=== PATIENT | male | born 1990 | race Two or more races ===

== ENCOUNTER 2025-02-16 10:43 | Inpatient (IN) | payer MEDICAID, OTHER ==
[~2025-02-16] VITALS: Ht 188 cm; Wt 131.5 kg
--- NOTE | 2025-02-16 11:18 | ED.PDOC ---
GI ASSESSMENT HPI Comments HPI: Poor Historian. Wound day history of epigastric pain with nausea and vomiting and black vomit that started this morning. Patient has history of stomach ulcer 34y M who presents to the ED for chief complaint of nausea and vomiting.Pt has the following ED course: -pt states earlier this AM, he had nausea and the vomiting episodes and states he had 4 vomiting episodes and states last vomiting episode, he states vomit was black - pt states he went to lay down on cough and states while laying down, he started to feel body aches and chills and came to the ED for further evaluation -pt in the ED, states he is also having epigastric abdominal pain, non- radiating, burning in nature, rating the pain 6/10, with no noted exacerbating or relieving factors -pt states he does have history of stomach ulcer and had endoscopy in 2013 - pt otherwise in the ED, states he also had diarrhea episode but denies any other symptoms past medical history: seizures, bipolar depression past surgical history: surgery for undescended testicles medications: unknown allergies: nkda social history: denies tobacco use, denies Etoh use, denies drug use REVIEW OF SYSTEMS: CONSTITUTIONAL: Denies acute: fever, diaphoresis, chills, HEAD: Denies acute: headache, photophobia Eyes: Denies acute: Double vision, vision loss, eye pain, eye discharge. EARS: Denies acute: tinnitus, hearing loss, ear discharge, ear pain, THROAT: Denies acute: sore throat, swelling, difficulty swallowing , pain with swallowing, change in voice. NECK: Denies acute: neck pain, neck swelling, stiff neck. HEART: Denies acute : chest pain, palpitations, LUNGS: Denies acute: SOB, wheezing, cough, hemoptysis ABDOMEN: Denies acute: diarrhea, melena , hematochezia SKIN: Denies acute: rash, redness, lesions, itchiness. EXTREMITIES: Denies acute: calf pain, numbness, tingling, weakness, denies pain in extremity. Denies acute: Low back pain. Neuro: Denies acute: focal neurological deficit, motor or sensory focal neurological deficit, tremors, seizure like activity, confusion, dizziness, change in mental status, loss of bowel or bladder function, cauda equina like symptoms. : Denies acute: dysuria, hematuria, flank pain, increase in urinary frequency. PSYCH: Denies acute: hallucination, suicidal ideation, homicidal ideation. PHYSICAL EXAM: General: [id number] acute distress, awake and alert. Head: normocephalic, atraumatic. Neck: supple, trachea is midline, no swelling. Throat: Normal phonation. Eyes:, no erythema, no purulent discharge, no proptosis, no icterus. Heart: regular rate, regular rhythm, no significant murmur appreciated. Lungs: no apparent respiratory distress, Able to speak in full sentences. No wheezing, no rhonchi, no crackles. No stridors Clear to auscultation bilaterally. Abdomen: Epigastric tender to palpation, non distended, soft, no guarding, no rebound, + bowel sounds. Neuro: Awake, Alert, oriented to name, self, situation, follows commands GCS=15. Speech is normal. Skin: no petechia, no purpura, no cyanosis, non-pale, not jaundice. Lower extremities: --no - Pitting edema no deformity, no focal swelling, no calf TTP. Makes eye contact. moves all four extremities. Face: no apparent facial droop. Ambulating in the ED independently. ED COURSE: Chief Complaint: Nausea/Vomiting Time Seen by MD: 10:50 Reviewed Notes: Nurses Notes, Allergies Allergies: Coded Allergies: NO KNOWN ALLERGIES (Unverified , 02/16/25) Information Source: Patient Mode of Arrival: Ambulatory Was a procedure done? Was a procedure done?: No GI differential Dx Differential Diagnosis: Other (DDX include but not limited to diverticulitis, colitis, gastroenteritis, acute abdomen, SBO, enteritis, constipation, volvulus, appendicitis, Gallbladder disease, choledocolithiasis, ascending cholangitis, pancreatitis, intraAbdominal mass/neoplasm, hepatitis, UTI, pylonephritis, kidney stone, aneurysm, dissection, Inflammatory bowel disease, gastroparesis, ischemic bowel.) X-Ray, Labs, Meds, VS Vital Signs Date Time Temp Pulse Resp B/P (MAP) Pulse Ox O2 Delivery O2 Flow Rate FiO2 02/16/25 13:04 97.4 71 18 144/72 (96) 98 97.4 02/16/25 12:08 84 17 95 Room Air* 0 21 02/16/25 12:00 98.2 67 16 120/75 (90) 95 98.2 02/16/25 10:52 98.0 68 18 123/69 (87) 97 98.0 Lab Test 02/16/25 14:00 02/16/25 11:10 Range/Units Urine Color Yellow Yellow Urine Clarity Clear Clear Urine pH 7.5 5.0-9.0 Urine Specific [place] 1.024 1.001-1.035 Urine Protein Negative Negative Urine Ketones Trace Negative Urine Blood Negative Negative /uL Urine Nitrite Negative Negative Urine Bilirubin Negative Negative Urine Urobilinogen Normal Negative mg/dL Urine Leukocyte Esterase Negative Negative /uL Urine RBC 1 0 - 3 /hpf Urine Microscopic WBC 8 H 0-3 /HPF Urine Squamous Epithelial Cells Few <5 /hpf Urine Bacteria None seen None Seen /hpf Urine Mucus Few None Seen Urine Glucose Normal Normal mg/dL White Blood Count 9.0 4.4-10.8 10^3/uL Red Blood Count 5.30 4.5-5.90 10^6/uL Hemoglobin 16.2 13.5-17.5 g/dL Hematocrit 46.5 41.0-53.0 % Mean Corpuscular Volume 87.8 80.0-100.0 fL Mean Corpuscular Hemoglobin 30.6 28.0-32.0 pg Mean Corpuscular Hemoglobin Concent 34.8 32.0-36.0 g/dL Red Cell Distribution Width 13.8 11.8-14.3 % Platelet Count 251 140-450 10^3/uL Mean Platelet Volume 8.4 6.9-10.8 fL Neutrophils (%) (Auto) 62.1 37.0-80.0 % Lymphocytes (%) (Auto) 29.5 10.0-50.0 % Monocytes (%) (Auto) 7.6 0.0-12.0 % Eosinophils (%) (Auto) 0.4 0.0-7.0 % Basophils (%) (Auto) 0.4 0.0-2.0 % Neutrophils # (Auto) 5.6 1.6-8.6 10 ^3/uL Lymphocytes # (Auto) 2.7 0.4-5.4 10 ^3/uL Monocytes # (Auto) 0.7 0-1.3 10 ^3/uL Eosinophils # (Auto) 0 0-0.8 10 ^3/uL Basophils # (Auto) 0 0-0.2 10 ^3/uL Nucleated Red Blood Cells 0.2 % Sodium Level 139 136-145 mmol/L Potassium Level 4.3 3.5-5.1 mmol/L Chloride Level 105 98-107 mmol/L Carbon Dioxide Level 26 20-31 mmol/L Anion Gap 8 5-15 Blood Urea Nitrogen 11 9-23 mg/dL Creatinine 0.83 0.700-1.30 mg/dL Glomerular Filtration Rate Calc 116 >90 mL/min BUN/Creatinine Ratio 13.3 10.0-20.0 Serum Glucose 97 74-106 mg/dL Lactic Acid Level 1.0 0.4-2.0 mmol/L Calcium Level 9.7 8.7-10.4 mg/dL Total Bilirubin 0.9 0.2-1.0 mg/dL Aspartate Amino Transferase (AST) 29 13-40 U/L Alanine Aminotransferase (ALT) 40 7-40 U/L Alkaline Phosphatase 110 46-116 U/L Total Protein 7.9 5.7-8.2 g/dL Albumin 4.7 3.2-4.8 g/dL Lipase 76 H 12-53 U/L Current Medications Medications (Trade) Dose Ordered Sig/Mikel Route Start Time Stop Time Status Last Admin Sodium Chloride 1,000 ml @ 1,000 mls/hr Q1H ONCE IV 02/16/25 11:00 02/16/25 11:59 DC 02/16/25 12:01 Pantoprazole Sodium (Protonix) 40 mg ONCE ONCE IV 02/16/25 11:00 02/16/25 11:01 DC 02/16/25 12:07 Ondansetron HCl (Zofran) 8 mg ONCE ONCE IV 02/16/25 11:00 02/16/25 11:01 DC 02/16/25 12:07 [place] [address] Ph: [phone] DIAGNOSTIC IMAGING Diagnostic Imaging Report : [id number] Signed PATIENT: LARS ARAIZA ACCT: [id number] UNIT: [id number] : 1990 LOC: ER ROOM / BED: / AGE / SEX: 34 / M ADM STATUS: REG ER SERVICE 1052 ORDERING PHYSICIAN: RANGEL MARCELINO DO PROCEDURE(s): ABPL - CT AB PEL WO CON-NO ORAL OR IV REASON: n/v hematemesis abd pain ORDER NUMBER(s): [id number], ACCESSION NUMBER(s): [id number] Exam: AB PEL W/O History: Nausea / vomiting, hematemesis, abdominal pain Comparison Study: None Technique: Multidetector spiral CT of the abdomen and pelvis was performed from lung bases to pubic symphysis. Imaging was performed without IV contrast. Axial, coronal and sagittal multiplanar reformats were obtained from the axial data set by the technologist. Radiation dose : Abdomen/Pelvis: CTDIvol 25.98 mGy, DLP 1351.17 mGy*cm. Findings: Evaluation of solid organs is limited due to lack of intravenous contrast use. Lung Bases: No acute or significant lung base finding. Normal heart size. No pleural or pericardial effusion. Liver: The liver is normal in size. No focal lesions. Gallbladder and biliary Tree: Unremarkable Spleen: Unremarkable Pancreas: The pancreas is grossly normal in appearance. Adrenal Glands: Unremarkable Kidneys: Left renal cyst. No hydronephrosis or nephrolithiasis. Bladder: Grossly unremarkable for degree of distention. Bowel: The stomach is grossly normal in appearance. Small bowel and colon are normal in caliber and distribution. Normal appendix is visualized in the right lower quadrant without findings of appendicitis. Ascites: Absent Lymphadenopathy: No mesenteric, retroperitoneal or periportal lymphadenopathy. Abdominal wall and Mesentery: Unremarkable. Vasculature: The visualized abdominal aorta is normal in size and caliber. Evaluation of abdominal and pelvic vessels is limited due to lack of intravenous contrast. Pelvic Organs: Unremarkable Musculoskeletal: No aggressive focal bony lesions, acute fractures or dislocation. IMPRESSION: 1. No acute abdominal or pelvic findings. No hydronephrosis or nephrolithiasis. Radiation optimization: All CT scans at this facility use at least one of these dose optimization techniques: Automated exposure control mA and/or kV adjustment per patient size (includes targeted exams where dose is matched to clinical indication) or iterative reconstruction. HS:Y ATED BY: LONNIE HERNÁNDEZ MD DICTATED DATE/TIME: 02/16/25 1150 SIGNED BY: LONNIE HERNÁNDEZ MD SIGNED DATE/TIME: 02/16/25 1150 CC: Time of 1ST Reevaluation: 21:41 Reevaluation 1ST: Improved Patient Education/Counseling: Diagnosis, Treatment Family Education/Counseling: No Family Present Comments Patient presented with the above HPI.---abdominal pain/hematemesis--workup was initiated. patient was found with the above mentioned diagnosis. the following medications were ordered: please refer to order lists of meds and tests obtained by myself Dr. Marcelino. Patient ED course and VS have been stabilized. Patient has been reassessed in the ED and remained in a stable condition. Pertinent incidental findings were discussed with the patient and/or family. Patient/family voices understanding and is agreeable with plan. Patient has been observed in the ED adequate length of time to insure improvement/stability. Escalation of care considered: Consideration of escalation to observation or admission Patient was ADMITTED to the medicine team for further evaluation and treatment of their presentation. All the reports of any imaging studies that were ordered by myself were reviewed by myself. Departure 1 Departure Time of Disposition: 12:00 Impression: Primary Impression: Hematemesis Additional Impression: Epigastric pain Disposition: ADMITTED INPATIENT Admit to: Tele Condition: Guarded Discharged With: Self Critical Care Note Critical Care Time?: No I personally scribed for RANGEL MARCELINO DO ([email or web address]) on 02/16/25 at 11:18. Electronically submitted by Georgia Winters ([email or web address]). I personally scribed for RANGEL MARCELINO DO ([email or web address]) on 02/16/25 at 11:34. Electronically submitted by Georgia Winters ([email or web address]). I personally scribed for RANGEL MARCELINO DO ([email or web address]) on 02/16/25 at 12:45. Electronically submitted by Georgia Winters ([employer]). RANGEL MARCELINO DO Feb 16, 2025 11:18
[2025-02-16 11:30] LABS: Basophils # (auto) 0 10 ^3/uL (0-0.2); Basophils % (auto) 0.4 % (0.0-2.0); Eosinophils # (auto) 0 10 ^3/uL (0-0.8); Eosinophils % (auto) 0.4 % (0.0-7.0); Hematocrit 46.5 % (41.0-53.0); Hemoglobin 16.2 g/dL (13.5-17.5); Lymphocytes # (auto) 2.7 10 ^3/uL (0.4-5.4); Lymphocytes % (auto) 29.5 % (10.0-50.0); Mean Corpuscular Hemoglobin 30.6 pg (28.0-32.0); Mean Corpuscular Hgb Conc. 34.8 g/dL (32.0-36.0); Mean Corpuscular Volume 87.8 fL (80.0-100.0); Monocytes # (auto) 0.7 10 ^3/uL (0-1.3); Monocytes % (auto) 7.6 % (0.0-12.0); Neutrophils # (auto) 5.6 10 ^3/uL (1.6-8.6); Neutrophils % (auto) 62.1 % (37.0-80.0); Nucleated Red Blood Cells % 0.2 %; Platelet Count (auto) 251 10^3/uL (140-450); Red Cell Distribution Width 13.8 % (11.8-14.3)
[2025-02-16] MEDS: SODIUM CHLORIDE 0.9% 1,000 ML IV ONE (12:01)
[2025-02-16 12:07] LABS: Alanine Aminotransferase 40 U/L (7-40); Albumin 4.7 g/dL (3.2-4.8); Alkaline Phosphatase 110 U/L (46-116); Anion Gap 8 (5-15); Aspartate Aminotransferase 29 U/L (13-40); BUN/Creatinine Ratio 13.3 (10.0-20.0); Bilirubin, Total 0.9 mg/dL (0.2-1.0); Blood Urea Nitrogen 11 mg/dL (9-23); Calcium 9.7 mg/dL (8.7-10.4); Carbon Dioxide 26 mmol/L (20-31); Chloride 105 mmol/L (98-107); Glucose 97 mg/dL (74-106); Potassium 4.3 mmol/L (3.5-5.1); Sodium 139 mmol/L (136-145); Total Protein 7.9 g/dL (5.7-8.2)
[2025-02-16] MEDS: PANTOPRAZOLE 40 MG/10 ML VIAL INJ IV ONE (12:07)
[2025-02-16] MEDS: ONDANSETRON HCL 4 MG/2 ML VIAL IV ONE (12:07)
[2025-02-16 12:08] VITALS: PULSE 84; RESP 17; O2SAT 95
--- NOTE | 2025-02-16 12:15 | DVH ---
Exam: AB PEL W/O History: Nausea / vomiting, hematemesis, abdominal pain Comparison Study: None Technique: Multidetector spiral CT of the abdomen and pelvis was performed from lung bases to pubic symphysis. Imaging was performed without IV contrast. Axial, coronal and sagittal multiplanar reform ats were obtained from the axial data set by the technologist. Radiation dose : Abdomen/Pelvis: CTDIvol 25.98 mGy, DLP 1351.17 mGy*cm. Findings: Evaluation of solid organs is limited due to lack of intravenous contrast use. Lung Bases: No acute or significant lung base finding. Normal heart size. No pleural or pericardial effusion. Liver: The liver is normal in size. No focal lesions. Gallbladder and biliary Tree: Unremarkable Spleen: Unremarkable Pancreas: The pancreas is grossly normal in appearance. Adrenal Glands: Unremarkable Kidneys: Left renal cyst. No hydronephrosis or nephrolithiasis. Bladder: Grossly unremarkable for degree of distention. Bowel: The stomach is grossly normal in appearance. Small bowel and colon are normal in caliber and d istribution. Normal appendix is visualized in the right lower quadrant without findings of appendicit is. Ascites: Absent Lymphadenopathy: No mesenteric, retroperitoneal or periportal lymphadenopathy. Abdominal wall and Mesentery: Unremarkable. Vasculature: The visualized abdominal aorta is normal in size and caliber. Evaluation of abdominal a nd pelvic vessels is limited due to lack of intravenous contrast. Pelvic Organs: Unremarkable Musculoskeletal: No aggressive focal bony lesions, acute fractures or dislocation. IMPRESSION: 1.No acute abdominal or pelvic findings. No hydronephrosis or nephrolithiasis. Radiation optimization: All CT scans at this facility use at least one of these dose optimization te chniques: Automated exposure control mA and/or kV adjustment per patient size (includes targeted exam s where dose is matched to clinical indication) or iterative reconstruction. HS:Y
[2025-02-16 12:22] LABS: Lipase 76 U/L (12-53)
[2025-02-16 14:22] LABS: Urine Bacteria None Seen /hpf (None Seen)
[2025-02-16 14:31] LABS: Urine Blood Negative /uL (Negative); Urine Clarity Clear (Clear); Urine Color Yellow (Yellow); Urine Mucus FEW (None Seen); Urine Protein, UAD Negative (Negative); Urine Specific Gravity 1.024 (1.001-1.035); Urine Squamous Epithelial Cell FEW /hpf (<5); Urine Urobilinogen Normal (Negative); Urine WBC 8 /HPF (0-3); Urine pH 7.5 (5.0-9.0)
[2025-02-16] MEDS ORDERED: ONDANSETRON HCL 4 MG/2 ML VIAL IV PRN (15:15)
[2025-02-16] MEDS ORDERED: ACETAMINOPHEN 325 MG TAB PO PRN (15:15)
[2025-02-16] MEDS ORDERED: MORPHINE SULFATE INJ 2 MG/ml SYRG IV PRN (15:15)
--- NOTE | 2025-02-16 15:43 | DVHHP2 ---
History of Present Illness Reason for Visit: Abdominal pain History of Present Illness Henrry Esteban is a 34-year-old male with past medical history of stomach ulcer, seizures, bipolar disorder, and testicular surgery who presents to the ED with abdominal pain, nausea, vomiting, and diarrhea x1 day. Patient reports that the abdominal pain is 5/10 burning and intermittent nature. He also reports body aches and chills. Patient reports that he was throwing up clear liquids then small clots black in color. Patient denies chest pain, lightheadedness, weakness, dizziness, fever, recent trauma or injury, recent ingestion of spoiled food, recent sick contacts, and shortness of breath. Patient also denies melena. 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 Psych: Bipolar Past Medical History Stomach ulcer Past Surgical History: Other (Testicular surgery) Family History: DM, Other (Both parents with diabetes) Smoke: No ALCOHOL: none Drugs: Marijuana Lives: with Family Domestic Violence: Neg Review of Systems Constitutional: Yes: Chills, Other (Body aches) Gastrointestinal: Nausea, Vomiting, Abdominal Pain, Diarrhea Allergies: Coded Allergies: NO KNOWN ALLERGIES (Unverified , 02/16/25) Medications Current Medications Medications Dose Ordered Sig/Mikel Route Start Time Stop Time Status Last Admin Dose Admin Pantoprazole Sodium 40 mg DAILY IV 02/17/25 10:00 UNV Acetaminophen/ Hydrocodone Bitart 1 tab Q4HP PRN PO 02/16/25 15:15 UNV Ondansetron HCl 4 mg Q4HP PRN IV 02/16/25 15:15 UNV Acetaminophen 650 mg Q6HP PRN PO 02/16/25 15:15 UNV Morphine Sulfate 2 mg Q4HPRN PRN IV 02/16/25 15:15 UNV Exam Vital Signs Vital Signs Date Time Temp Pulse Resp B/P (MAP) Pulse Ox O2 Delivery O2 Flow Rate FiO2 02/16/25 13:04 97.4 71 18 144/72 (96) 98 97.4 02/16/25 12:08 Room Air* 0 21 General Appearance: Alert, Oriented X3, Cooperative, No acute distress HEENT: Atraumatic, PERRLA, EOMI, Mucous membr. moist/pink Respiratory: Clear to auscultation, Normal air movement Cardiovascular: Regular rate, Normal S1, Normal S2, No murmurs Abdominal: Soft Extremities: No cyanosis, Normal pulses Skin: No significant lesion Neuro: Normal gait, Normal speech, Strength at 5/5 X4 ext, Normal tone, Sensation intact Psych/Mental Status: Mental status NL, Mood NL Labs/Xrays Labs Test 02/16/25 14:00 02/16/25 11:10 Range/Units Urine Color Yellow Yellow Urine Clarity Clear Clear Urine pH 7.5 5.0-9.0 Urine Specific [place] 1.024 1.001-1.035 Urine Protein Negative Negative Urine Ketones Trace Negative Urine Blood Negative Negative /uL Urine Nitrite Negative Negative Urine Bilirubin Negative Negative Urine Urobilinogen Normal Negative mg/dL Urine Leukocyte Esterase Negative Negative /uL Urine RBC 1 0 - 3 /hpf Urine Microscopic WBC 8 H 0-3 /HPF Urine Squamous Epithelial Cells Few <5 /hpf Urine Bacteria None seen None Seen /hpf Urine Mucus Few None Seen Urine Glucose Normal Normal mg/dL White Blood Count 9.0 4.4-10.8 10^3/uL Red Blood Count 5.30 4.5-5.90 10^6/uL Hemoglobin 16.2 13.5-17.5 g/dL Hematocrit 46.5 41.0-53.0 % Mean Corpuscular Volume 87.8 80.0-100.0 fL Mean Corpuscular Hemoglobin 30.6 28.0-32.0 pg Mean Corpuscular Hemoglobin Concent 34.8 32.0-36.0 g/dL Red Cell Distribution Width 13.8 11.8-14.3 % Platelet Count 251 140-450 10^3/uL Mean Platelet Volume 8.4 6.9-10.8 fL Neutrophils (%) (Auto) 62.1 37.0-80.0 % Lymphocytes (%) (Auto) 29.5 10.0-50.0 % Monocytes (%) (Auto) 7.6 0.0-12.0 % Eosinophils (%) (Auto) 0.4 0.0-7.0 % Basophils (%) (Auto) 0.4 0.0-2.0 % Neutrophils # (Auto) 5.6 1.6-8.6 10 ^3/uL Lymphocytes # (Auto) 2.7 0.4-5.4 10 ^3/uL Monocytes # (Auto) 0.7 0-1.3 10 ^3/uL Eosinophils # (Auto) 0 0-0.8 10 ^3/uL Basophils # (Auto) 0 0-0.2 10 ^3/uL Nucleated Red Blood Cells 0.2 % Sodium Level 139 136-145 mmol/L Potassium Level 4.3 3.5-5.1 mmol/L Chloride Level 105 98-107 mmol/L Carbon Dioxide Level 26 20-31 mmol/L Anion Gap 8 5-15 Blood Urea Nitrogen 11 9-23 mg/dL Creatinine 0.83 0.700-1.30 mg/dL Glomerular Filtration Rate Calc 116 >90 mL/min BUN/Creatinine Ratio 13.3 10.0-20.0 Serum Glucose 97 74-106 mg/dL Lactic Acid Level 1.0 0.4-2.0 mmol/L Calcium Level 9.7 8.7-10.4 mg/dL Total Bilirubin 0.9 0.2-1.0 mg/dL Aspartate Amino Transferase (AST) 29 13-40 U/L Alanine Aminotransferase (ALT) 40 7-40 U/L Alkaline Phosphatase 110 46-116 U/L Total Protein 7.9 5.7-8.2 g/dL Albumin 4.7 3.2-4.8 g/dL Lipase 76 H 12-53 U/L Exam: AB PEL W/O History: Nausea / vomiting, hematemesis, abdominal pain Comparison Study: None Technique: Multidetector spiral CT of the abdomen and pelvis was performed from lung bases to pubic symphysis. Imaging was performed without IV contrast. Axial, coronal and sagittal multiplanar reformats were obtained from the axial data set by the technologist. Radiation dose : Abdomen/Pelvis: CTDIvol 25.98 mGy, DLP 1351.17 mGy*cm. Findings: Evaluation of solid organs is limited due to lack of intravenous contrast use. Lung Bases: No acute or significant lung base finding. Normal heart size. No pleural or pericardial effusion. Liver: The liver is normal in size. No focal lesions. Gallbladder and biliary Tree: Unremarkable Spleen: Unremarkable Pancreas: The pancreas is grossly normal in appearance. Adrenal Glands: Unremarkable Kidneys: Left renal cyst. No hydronephrosis or nephrolithiasis. Bladder: Grossly unremarkable for degree of distention. Bowel: The stomach is grossly normal in appearance. Small bowel and colon are normal in caliber and distribution. Normal appendix is visualized in the right lower quadrant without findings of appendicitis. Ascites: Absent Lymphadenopathy: No mesenteric, retroperitoneal or periportal lymphadenopathy. Abdominal wall and Mesentery: Unremarkable. Vasculature: The visualized abdominal aorta is normal in size and caliber. Evaluation of abdominal and pelvic vessels is limited due to lack of intravenous contrast. Pelvic Organs: Unremarkable Musculoskeletal: No aggressive focal bony lesions, acute fractures or dislocation. IMPRESSION: 1. No acute abdominal or pelvic findings. No hydronephrosis or nephrolithiasis. Assessment/Plan Assessment/Plan Assessment Intractable abdominal pain with nausea vomiting and diarrhea Hyperlipasemia Marijuana use Obesity History of stomach ulcer History of seizures History of bipolar disorder History of testicular surgery Plan Admit to med surge Antiemetics PPIs NS [address] abdomen and pelvis EKG UA Lipase Lactic Flu COVID Counseled patient on lifestyle modifications, diet, and exercise Discussed plan of care with patient and nurse Counseled patient on cessation of marijuana use No home meds to reconcile patient states that he does not take many medications DVT prophylaxis not indicated patient ambulating PUD prophylaxis-Protonix Plan discussed with: Patient My Orders Orders - JACQUELINE FRY Procedure Category Date Status Time Pantoprazole PHA 02/17/25 Transmitted (Protonix) 10:00 Admit ADMIT 02/16/25 Transmitted 15:07 Allergies CHRISTIANO 02/16/25 Transmitted 15:07 Code Status CODE 02/16/25 Transmitted 15:07 Hydrocodone-Acet PHA 02/16/25 Transmitted 5/325mg Tab ([place] 15:15 Ondansetron Hcl PHA 02/16/25 Transmitted (Zofran) 15:15 Complete Blood Count LAB 02/17/25 Verified 04:00 Comprehensive LAB 02/17/25 Verified Metabolic Panel 04:00 Acetaminophen Tablet PHA 02/16/25 Transmitted (Tylenol Tablet) 15:15 Morphine Sulfate PHA 02/16/25 Transmitted Injection 15:15 Regular Diet DIET 02/16/25 Transmitted Dinner Date of Service: Feb 16, 2025 Billing Provider: JACQUELINE FRY Common Visit Codes: [id number] INP/OBS CARE (HIGH) JACQUELINE FRY Feb 16, 2025 15:43
[2025-02-16 16:43] VITALS: BP 108/68; PULSE 61; RESP 16; TEMP 98.5; O2SAT 98
[2025-02-16 20:32] VITALS: BP 113/52; PULSE 67; RESP 18; TEMP 98; O2SAT 96
[2025-02-16 20:41] LABS: COVID19 ANTIGEN SOFIA FIA NEGATIVE (NEGATIVE); Rapid Influenza A Negative (Negative); Rapid Influenza B Negative (Negative)
[2025-02-16] MEDS: CALCIUM CARB 500 MG CHEW TAB PO SCH (21:42)
[2025-02-16] MEDS: HYDROcodone-ACET 5/325MG TAB PO PRN (22:19)
[2025-02-16 22:20] VITALS: BP 106/46; PULSE 60; RESP 18; TEMP 98.2; O2SAT 97
[2025-02-17] VITALS (7 sets, daily range): BP systolic 105–135; BP diastolic 51–71; PULSE 57–74; RESP 16–20; TEMP 97.4–98.7; O2SAT 95–100
[2025-02-17 06:29] LABS: Basophils # (auto) 0 10 ^3/uL (0-0.2); Basophils % (auto) 0.3 % (0.0-2.0); Eosinophils # (auto) 0.1 10 ^3/uL (0-0.8); Hematocrit 44.5 % (41.0-53.0); Hemoglobin 14.9 g/dL (13.5-17.5); Lymphocytes # (auto) 3.1 10 ^3/uL (0.4-5.4); Mean Corpuscular Hemoglobin 29.7 pg (28.0-32.0); Mean Corpuscular Hgb Conc. 33.6 g/dL (32.0-36.0); Mean Corpuscular Volume 88.3 fL (80.0-100.0); Monocytes # (auto) 0.8 10 ^3/uL (0-1.3); Monocytes % (auto) 9.4 % (0.0-12.0); Neutrophils # (auto) 4.6 10 ^3/uL (1.6-8.6); Neutrophils % (auto) 53.3 % (37.0-80.0); Platelet Count (auto) 215 10^3/uL (140-450); Red Blood Cells 5.04 10^6/uL (4.5-5.90); Red Cell Distribution Width 14.2 % (11.8-14.3); White Blood Cell 8.6 10^3/uL (4.4-10.8)
[2025-02-17 06:49] LABS: Alanine Aminotransferase 35 U/L (7-40); Albumin 3.9 g/dL (3.2-4.8); Alkaline Phosphatase 91 U/L (46-116); Anion Gap 8 (5-15); Aspartate Aminotransferase 25 U/L (13-40); BUN/Creatinine Ratio 12.8 (10.0-20.0); Bilirubin, Total 0.9 mg/dL (0.2-1.0); Blood Urea Nitrogen 11 mg/dL (9-23); Calcium 9.1 mg/dL (8.7-10.4); Carbon Dioxide 26 mmol/L (20-31); Chloride 106 mmol/L (98-107); Glucose 92 mg/dL (74-106); Potassium 4.3 mmol/L (3.5-5.1); Sodium 140 mmol/L (136-145); Total Protein 6.8 g/dL (5.7-8.2)
[2025-02-17] MEDS ORDERED: CALCIUM CARB 500 MG CHEW TAB PO SCH (08:00)
[2025-02-17] MEDS: PANTOPRAZOLE 40 MG/10 ML VIAL INJ IV SCH (08:53)
[2025-02-17] MEDS: SUCRALFATE 1 GM/10 ML ORAL SUSP PO SCH (12:54)
[2025-02-17] MEDS: SODIUM CHLORIDE 0.9% 1,000 ML IV ONE (17:37)
--- NOTE | 2025-02-17 21:05 | DVHPNRES ---
Progress Note Date Seen: Feb 17, 2025 Resident Creating Document: ANSLEY LEOSKISHAN RESIDENT Medical Necessity Reason Pt with a Central, PICC or Fol: No Subjective Review of Systems Patient 34-year-old male with a past medical history of gastric ulcer presented to the ED with a chief complaint of multiple episodes of vomiting and abdominal pain. Patient reported that 2 days ago in the evening he started to have diarrhea with 2-3 episodes of watery stools and the following day early in the morning he had multiple episodes of vomiting in 1 hour and noticed small dark black specks during one of the episodes. Patient also reported associated abdominal pain in the epigastrium in the left upper quadrant, nonradiating, got worse with the food. Patient reports that in 2014 he had hematemesis following which he underwent upper endoscopy and reportedly showed lower esophageal/gastric ulcers following which she was started on antiacid medication which he took for a while but has not taken it in the last 2-3 years. Patient denies the use of NSAIDs, heavy alcohol, spicy foods or caffeine. He does report smoking 3 joints of marijuana every day. Patient denied any similar episode of vomiting in the last year. Patient does report having black stools in the last year. 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 Social history: Patient was with family and smokes 2-3 joints of marijuana every day but denies alcohol or other drug use Home medications: None Review of systems Patient reported epigastric, right and left upper quadrant abdominal pain and tenderness which got worse with the food Denies nausea or vomiting No episode of watery stools for 2 days Objective vital signs Vital Sign Date Time Temp Pulse Resp B/P (MAP) Pulse Ox O2 Delivery O2 Flow Rate FiO2 02/17/25 20:00 Room Air* 0 21 02/17/25 16:40 98.0 62 18 125/71 (89) 97 98.0 Total Intake and Output 02/16/25 02/16/25 02/17/25 15:00 23:00 07:00 Intake Total 1000 ml 300 ml 100 ml Balance 1000 ml 300 ml 100 ml medications Current Medications Medications Dose Ordered Sig/Mikel Route Start Time Stop Time Status Last Admin Dose Admin Pantoprazole Sodium 40 mg DAILY IV 02/17/25 10:00 02/17/25 08:53 40 MG Acetaminophen/ Hydrocodone Bitart 1 tab Q4HP PRN PO 02/16/25 15:15 02/17/25 16:16 1 TAB Ondansetron HCl 4 mg Q4HP PRN IV 02/16/25 15:15 Acetaminophen 650 mg Q6HP PRN PO 02/16/25 15:15 Calcium Carbonate 500 mg BIDWM PO 02/16/25 22:00 02/17/25 17:35 500 MG Sucralfate 1 gm QID@0600,1130,1700,2200 PO 02/17/25 11:30 02/17/25 17:35 1 GM Examination Constitution patient was alert and oriented to time, place and person and does not appear to be in any acute distress Gen - no pallor, no icterus, no cyanosis, no clubbing, no LAD, no edema . Skin - Patients skin is warm and dry.. HEENT - normocephalic, atraumatic, dry mucous membranes. Neck - full ROM, no LAD, no JVD Pulmonary - B/L vesicular breath sounds. no crackles , no wheezing, no stridor. cardiovascular - normal S1,S2 heard. no murmurs heard. peripheral pulses normal radial 2+, pedal 2+. GI - soft abdomen with tenderness to palpation in the epigastrium and right and left upper quadrants. Haley sign negative. no hepatospleenomegaly. Bowel sounds normoactive Neurological - Bilateral upper extremity strength 5/5, bilateral lower extremity strength 5/5, no facial droop, normal speech, no tremor, no sensory deficiets. laboratory and microbiology Laboratory Tests 02/17/25 05:56 Test 02/17/25 05:56 Range/Units Serum Glucose 92 74-106 mg/dL Problem List/Assessment/Plan Problem List/Assessment/Plan Assessment Acute viral/toxin mediated gastroenteritis Dyspepsia ? Acute gastritis H/o bipolar disorder H/o depression H/o seizure disorder H&H stable Stool occult blood negative CT abdomen pelvis without contrast showed no acute abdominopelvic findings Plan - Protonix IV - sucralfate p.o. - on full liquid diet - IV fluid hydration Goals of care discussed with the patient for over 23 minutes. Full code Plan discussed with Dr. Win Ayers discussed with: Patient My Orders My Orders Orders - PREET LEOS RESIDENT Procedure Category Date Status Time Full Liq Diet DIET 02/17/25 Transmitted Lunch Sucralfate Susp PHA 02/17/25 In Process (Carafate Susp) 11:30 Sodium Chloride 0.9% PHA 02/17/25 In Process 17:00 PREET LEOS RESIDENT Feb 17, 2025 21:05
[2025-02-18 01:00] VITALS: BP 106/52; PULSE 56; RESP 19; TEMP 97.3; O2SAT 95
[2025-02-18 05:00] VITALS: BP 133/77; PULSE 57; RESP 18; TEMP 97.7; O2SAT 97
[2025-02-18 07:55] LABS: Basophils # (auto) 0 10 ^3/uL (0-0.2); Basophils % (auto) 0.3 % (0.0-2.0); Eosinophils # (auto) 0.1 10 ^3/uL (0-0.8); Eosinophils % (auto) 0.7 % (0.0-7.0); Hematocrit 46.7 % (41.0-53.0); Hemoglobin 16.3 g/dL (13.5-17.5); Lymphocytes # (auto) 2.9 10 ^3/uL (0.4-5.4); Lymphocytes % (auto) 28.6 % (10.0-50.0); Mean Corpuscular Hemoglobin 30.9 pg (28.0-32.0); Mean Corpuscular Volume 88.2 fL (80.0-100.0); Monocytes # (auto) 0.8 10 ^3/uL (0-1.3); Monocytes % (auto) 7.9 % (0.0-12.0); Neutrophils # (auto) 6.3 10 ^3/uL (1.6-8.6); Neutrophils % (auto) 62.5 % (37.0-80.0); Nucleated Red Blood Cells % 0.1 %; Platelet Count (auto) 225 10^3/uL (140-450); Red Blood Cells 5.29 10^6/uL (4.5-5.90); Red Cell Distribution Width 13.9 % (11.8-14.3); White Blood Cell 10.1 10^3/uL (4.4-10.8)
[2025-02-18 09:00] VITALS: BP 127/67; PULSE 63; RESP 18; TEMP 98.2; O2SAT 97
[2025-02-18] MEDS ORDERED: PANT40TA2 PO (10:40)
[2025-02-18] MEDS ORDERED: SUCR1SUS5 PO (10:40)
--- NOTE | 2025-02-18 12:26 | DVHDSRES ---
Discharge Summary Date of Admission Resident Creating Document: PREET LEOS RESIDENT Feb 16, 2025 at 15:07 Date of Discharge: Feb 18, 2025 Admitting Diagnosis Intractable abdominal pain with nausea vomiting and diarrhea Hyperlipasemia Marijuana use Obesity History of stomach ulcer History of seizures History of bipolar disorder History of testicular surgery Wounds: none Labs/Diagnostic Data: Laboratory Results Test 02/18/25 07:24 02/17/25 12:23 02/17/25 05:56 02/16/25 19:50 White Blood Count 10.1 10^3/uL (4.4-10.8) Red Blood Count 5.29 10^6/uL (4.5-5.90) Hemoglobin 16.3 g/dL (13.5-17.5) Hematocrit 46.7 % (41.0-53.0) Mean Corpuscular Volume 88.2 fL (80.0-100.0) Mean Corpuscular Hemoglobin 30.9 pg (28.0-32.0) Mean Corpuscular Hemoglobin Concent 35.0 g/dL (32.0-36.0) Red Cell Distribution Width 13.9 % (11.8-14.3) Platelet Count 225 10^3/uL (140-450) Mean Platelet Volume 8.5 fL (6.9-10.8) Neutrophils (%) (Auto) 62.5 % (37.0-80.0) Lymphocytes (%) (Auto) 28.6 % (10.0-50.0) Monocytes (%) (Auto) 7.9 % (0.0-12.0) Eosinophils (%) (Auto) 0.7 % (0.0-7.0) Basophils (%) (Auto) 0.3 % (0.0-2.0) Neutrophils # (Auto) 6.3 10 ^3/uL (1.6-8.6) Lymphocytes # (Auto) 2.9 10 ^3/uL (0.4-5.4) Monocytes # (Auto) 0.8 10 ^3/uL (0-1.3) Eosinophils # (Auto) 0.1 10 ^3/uL (0-0.8) Basophils # (Auto) 0 10 ^3/uL (0-0.2) Nucleated Red Blood Cells 0.1 % Stool Occult Blood Negative (Negative) Stool Occult Blood Sample #3 (Negative) Sodium Level 140 mmol/L (136-145) Potassium Level 4.3 mmol/L (3.5-5.1) Chloride Level 106 mmol/L (98-107) Carbon Dioxide Level 26 mmol/L (20-31) Anion Gap 8 (5-15) Blood Urea Nitrogen 11 mg/dL (9-23) Creatinine 0.86 mg/dL (0.700-1.30) Glomerular Filtration Rate Calc 115 mL/min (>90) BUN/Creatinine Ratio 12.8 (10.0-20.0) Serum Glucose 92 mg/dL (74-106) Calcium Level 9.1 mg/dL (8.7-10.4) Total Bilirubin 0.9 mg/dL (0.2-1.0) Aspartate Amino Transferase (AST) 25 U/L (13-40) Alanine Aminotransferase (ALT) 35 U/L (7-40) Alkaline Phosphatase 91 U/L (46-116) Total Protein 6.8 g/dL (5.7-8.2) Albumin 3.9 g/dL (3.2-4.8) Influenza Type A Antigen Negative (Negative) Influenza Type B Antigen Negative (Negative) SARS-CoV-2 Antigen (Rapid) Negative (NEGATIVE) Test 02/16/25 14:00 02/16/25 11:10 Urine Color Yellow (Yellow) Urine Clarity Clear (Clear) Urine pH 7.5 (5.0-9.0) Urine Specific [place] 1.024 (1.001-1.035) Urine Protein Negative (Negative) Urine Ketones Trace (Negative) Urine Blood Negative /uL (Negative) Urine Nitrite Negative (Negative) Urine Bilirubin Negative (Negative) Urine Urobilinogen Normal mg/dL (Negative) Urine Leukocyte Esterase Negative /uL (Negative) Urine RBC 1 /hpf (0 - 3) Urine Microscopic WBC 8 /HPF (0-3) Urine Squamous Epithelial Cells Few /hpf (<5) Urine Bacteria None seen /hpf (None Seen) Urine Mucus Few (None Seen) Urine Glucose Normal mg/dL (Normal) Lactic Acid Level 1.0 mmol/L (0.4-2.0) Lipase 76 U/L (12-53) Other Laboratory Tests 02/18/25 07:24 02/17/25 05:56 Brief Hx & Hospital Course: Patient 34-year-old male with a past medical history of gastric ulcer presented to the ED with a chief complaint of multiple episodes of vomiting and abdominal pain. Patient reported that 2 days ago in the evening he started to have diarrhea with 2-3 episodes of watery stools and the following day early in the morning he had multiple episodes of vomiting in 1 hour and noticed small dark black specks during one of the episodes. Patient also reported associated abdominal pain in the epigastrium in the left upper quadrant, nonradiating, got worse with the food. Patient reports that in 2014 he had hematemesis following which he underwent upper endoscopy and reportedly showed lower esophageal/gastric ulcers following which she was started on antiacid medication which he took for a while but has not taken it in the last 2-3 years. Patient denies the use of NSAIDs, heavy alcohol, spicy foods or caffeine. He does report smoking 3 joints of marijuana every day. Patient denied any similar episode of vomiting in the last year. Patient does report having black stools in the last year. 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 Patient was started on full liquid diet and a digital rectal exam was done following which stool occult blood was sent which was negative. Patient was started on Protonix IV and given IV fluid hydration as he had dehydration and was not able to tolerate food for coming to the hospital. Patient tolerated the liquid diet well and is being discharged in stable condition to home advised to follow up in the discharge clinic in 1 week for further management. Patient has a history of bipolar disorder, depression for which he was taking lithium and quetiapine pain previously but had stopped by himself has a reports his mood is good and the medications make him sleep all the time. Patient reports history of seizure disorder for which she was taking oxcarbazepine which currently he also stopped by himself. Patient was advised to resume his medications. Discharge medications: Protonix 40 mg p.o. q.a.m. into 30 days Sucralfate 1 g p.o. q.i.d. for 30 days Patient was advised to avoid NSAIDs, alcohol, smoking, spicy foods, caffeine. Consults/Reason for consult none Operations or Procedures none Condition at Discharge: Good Final Diagnosis/Problems List Acute viral/toxin mediated gastroenteritis Dyspepsia ? Acute gastritis H/o bipolar disorder H/o depression H/o seizure disorder Discharge Disposition: Home Discharge Instruct/Medications Diet: See Comment Diet comment: Full liquid diet for 2-3 days and then advance as tolerated Drink atleast 2L water Activity: No Restrictions, As Tolerated Follow Up/Referral: Follow up in the D/c clinic in one week Medications: as per EMR Avoid NSAIDS, ALCOHOL, SMOKING, CAFFIENE, SPICY FOODS Discharge Statement: "Patient was advised to return to the ER or call 911 if any headaches, dizziness, shortness of breath, chest pain, abdominal pain, bleeding, fevers, or worsening of medical condition. Patient was counseled about treatment plan, medications, possible side effects, patientverbalized understanding. All questions were answered to the best of my ability. This discharge took greater then 30 minutes in planning, reviewing documentation, counseling the patient, and discussing with other team members." ASSESSMENT ASSESSMENT Assessment Acute viral/toxin mediated gastroenteritis Dyspepsia ? Acute gastritis H/o bipolar disorder H/o depression H/o seizure disorder Date of Service: Feb 18, 2025 Billing Provider: AVERY VENCES MD Common Visit Codes: 64611-RWA/OBS DISCH DAY >30min PREET LEOS RESIDENT Feb 18, 2025 12:26 AVERY VENCES MD Feb 19, 2025 12:51
[2025-02-18 12:40] VITALS: BP 140/68; PULSE 65; RESP 18; TEMP 97.7; O2SAT 94
== END 2025-02-18 12:50 | disposition home or self-care (01) | DRG 241 ==
LOC: ER 10:43 → OVERFLOW 15:07 → WEST WING 15:40
PROVIDERS: ADMIT Student in an Organized Health Care Education/Training Program; ATTEND Student in an Organized Health Care Education/Training Program
DX: K29.00 Acute gastritis without bleeding (principal); K52.1 Toxic gastroenteritis and colitis; A08.4 Viral intestinal infection, unspecified; G40.909 Epilepsy, unspecified, not intractable, without status epilepticus; E66.9 Obesity, unspecified; F31.9 Bipolar disorder, unspecified; Z87.11 Personal history of peptic ulcer disease; Z83.3 Family history of diabetes mellitus; Z79.899 Other long term (current) drug therapy; Z68.35 Body mass index [BMI] 35.0-35.9, adult
CPT/HCPCS: 36415; 74176; 80053; 81001; 82270; 83605; 83690; 85025; 87426; 87804; 96361; 96374; 96375; G0378; J2405; J2470